=== PATIENT | female | born 1955 | race Caucasian/White ===

== ENCOUNTER 2019-04-19 18:09 | Emergency (ER) | payer OTHER | END 2019-04-19 18:45 | disposition home or self-care (01) | LOC: NAV ERS 18:09 | DX: S39.82XA Other specified injuries of lower back, initial encounter (principal); E78.5 Hyperlipidemia, unspecified; Z79.899 Other long term (current) drug therapy; Z79.84 Long term (current) use of oral hypoglycemic drugs; X50.1XXA Overexertion from prolonged static or awkward postures, initial encounter | CPT/HCPCS: 99283 ==